=== PATIENT | female | born 1945 | race Caucasian/White ===

== ENCOUNTER 2016-04-07 09:37 | Outpatient (CLI) | payer OTHER ==
--- NOTE | 2016-04-07 10:25 | DIAGNOSTIC IMAGING REPORT ---
PROCEDURE: MG BILATERAL SCREENING W/CAD INDICATION: Screening. Family history breast carcinoma (grandmother). TECHNIQUE: Bilateral CC and MLO digital views. COMPARISON: Compared to [facility] on 10/19/2013, 06/15/2012, and 07/19/2009. FINDINGS: Computer-aided detection applied. Moderately dense parenchymal pattern. There is a 10 mm asymmetry in the medial right breast (most likely lower inner quadrant, middle third). The rest of the breasts are unchanged. IMPRESSION: 1. There is a 10 mm asymmetry in the medial right breast (most likely lower inner quadrant). While this may represent normal asymmetric parenchyma, underlying mass or architectural distortion should be considered. Further mammographic views (true lateral view, CC and MLO spot compression views are recommended. In addition, right breast ultrasound is recommended. RESULT CODE: 0- Incomplete; needs additional evaluation. A. A negative report should not delay biopsy if a dominant or clinically suspicious mass is present. 10-15% of cancers are not identified by x-ray. B. A negative report may reinforce clinical impression. C. Adenosis and dense breasts may obscure an underlying neoplasm. D. False positive reports average 6-10%. E.. A yearly screening mammogram is recommended. A reminder letter will be scheduled.
--- NOTE | 2016-04-07 10:29 | DIAGNOSTIC IMAGING REPORT ---
PROCEDURE: DEXA BONE DENSITY STUDY CLINICAL INDICATION: ABSENCE OF MENSTRUATION COMPARISON: None. FINDINGS: LUMBAR SPINE: Bone mineral density 0.925, T-score -1.1, osteopenia LEFT HIP: Bone mineral density 0.780, T-score -1.3, osteopenia LEFT FEMORAL NECK: Bone mineral density 0.562, T-score -2.6, osteoporosis (T score greater or equal to -1.0 to: NORMAL) (T score from -1.1 to -2.4: OSTEOPENIA) (T score ess than or equal to -2.5: OSTEOPOROSIS) IMPRESSION: 1. Lumbar spine osteopenia 2. Left hip osteoporosis
== END 2016-04-07 23:00 ==
LOC: MAM SRH 09:37
DX: N91.2 Amenorrhea, unspecified (principal); M85.88 Other specified disorders of bone density and structure, other site; M81.8 Other osteoporosis without current pathological fracture; Z12.31 Encounter for screening mammogram for malignant neoplasm of breast

== ENCOUNTER 2016-04-11 14:42 | Outpatient (CLI) | payer OTHER, MEDICARE ==
--- NOTE | 2016-04-11 16:40 | DIAGNOSTIC IMAGING REPORT ---
PROCEDURE: MG UNILATERAL DIAG-RT W/CAD INDICATION: EVALUATE ASYMMETRY SEEN ON SCREENING TECHNIQUE: True lateral digital view of the right breast. In addition, spot compression CC and MLO views were obtained of the lower inner quadrant of the right breast (region of clinical concern). Finally, high-resolution right breast ultrasound was performed (18 mHz). Study supervised by Dr. Morrison. COMPARISON: Compared to screening mammogram study on 04/07/2016. FINDINGS: MAMMOGRAM: Computer-aided detection applied. Moderately dense parenchymal pattern. No evidence of mass or architectural distortion in the lower inner quadrant of the right breast. BREAST ULTRASOUND: Normal parenchyma. Evidence of mass or cyst IMPRESSION: 1. Negative mammogram and negative right breast ultrasound. 2. Resume routine screening schedule (April 2017). RESULT CODE: 1- Negative. A. A negative report should not delay biopsy if a dominant or clinically suspicious mass is present. 10-15% of cancers are not identified by x-ray. B. A negative report may reinforce clinical impression. C. Adenosis and dense breasts may obscure an underlying neoplasm. D. False positive reports average 6-10%. E.. A yearly screening mammogram is recommended. A reminder letter will be scheduled.
== END 2016-04-11 23:00 ==
LOC: MAM SRH 14:42
DX: R92.2 Inconclusive mammogram (principal)